=== PATIENT | female | born 1985 | race American Indian/Alaskan Native ===

== ENCOUNTER 2019-02-09 12:06 | Emergency (ER) | payer SELFPAY ==
[2019-02-09] MEDS ORDERED: MORPHINE IV ONE (12:56)
[2019-02-09] MEDS ORDERED: ZOFRAN IV ONE (12:56)
--- NOTE | 2019-02-09 12:56 | Emergency Department Report ---
HPI - General Chief Complaint: Abdominal Pain Time Seen by Provider: 02/09/19 12:30 - HPI HPI: 33-year-old female presents to the emergency department via EMS from home with complaint of generalized abdominal pain, nausea and vomiting. She has been dealing with the abdominal pain over the past 2-3 days but woke up with it this morning much more intense than usual. The nausea and vomiting started this morning. She denies any fever, back pain, dysuria, vaginal bleeding or discharge. She does not have any past medical history. She has not taken an ything for her symptoms prior to arrival today. ED Past Medical Hx - Past Medical History Additional medical history: ovarian cyst - Surgical History Past Surgical History?: No - Social History Smoking Status: Current Every Day Smoker Substance Use Type: None - Medications Home Medications: Home Medications Medication Instructions Recorded Confirmed Last Taken Type metroNIDAZOLE [Flagyl] 500 mg PO Q12HR #14 tab 07/19/18 Unknown Rx traMADol [Ultram 50 MG tab] 50 mg PO Q6HR PRN #10 tablet 02/09/19 Unknown Rx ED Review of Systems ROS: Stated complaint: ABD PAIN Other details as noted in HPI Comment: All other systems reviewed and negative Constitutional: denies: chills, fever Eyes: denies: eye pain, vision change ENT: denies: ear pain, throat pain Respiratory: denies: cough, shortness of breath Cardiovascular: denies: chest pain, palpitations Gastrointestinal: abdominal pain, nausea, vomiting Genitourinary: denies: dysuria, discharge Musculoskeletal: denies: back pain, arthralgia Skin: denies: rash, lesions Neurological: denies: headache, weakness Physical Exam - Physical Exam Vital Signs: Vital Signs 02/09/19 12:25 Temperature 97.9 F Pulse Rate 72 Respiratory 16 Rate Blood Pressure 96/56 [Left] O2 Sat by Pulse 100 Oximetry Physical Exam: GENERAL: The patient is well-developed well-nourished. HENT: Normocephalic. Atraumatic. Patient has moist mucous membranes. EYES: Extraocular motions are intact. NECK: Supple. Trachea is midline. CHEST/LUNGS: Clear to auscultation. There is no respiratory distress noted. HEART/CARDIOVASCULAR: Regular. There is no tachycardia. There is no murmur. ABDOMEN: Abdomen is soft. There is generalized abdominal tenderness with some guarding. Patient has normal bowel sounds. There is no abdominal distention. SKIN: Skin is warm and dry. NEURO: The patient is awake, alert, and oriented. The patient is cooperative. The patient has no focal neurologic deficits. The patient has normal speech. MUSCULOSKELETAL: There is no tenderness or deformity. There is no evidence of acute injury. ED Course Vital Signs 02/09/19 12:25 Temperature 97.9 F Pulse Rate 72 Respiratory 16 Rate Blood Pressure 96/56 [Left] O2 Sat by Pulse 100 Oximetry ED Medical Decision Making - Lab Data Result diagrams: 02/09/19 12:37 02/09/19 12:37 - Radiology Data Radiology results: report reviewed, image reviewed interpreted by me: Abdominal x-ray shows nonspecific nonobstructive bowel gas CT ABDOMEN AND PELVIS WITH CONTRAST INDICATION: Abd pain. TECHNIQUE: Axial CT images were obtained through the abdomen and pelvis after 100 cc Omnipaque IV contrast. All CT scans at this location are performed using CT dose reduction for ALARA by means of automated exposure control. COMPARISON: None available. FINDINGS: LOWER CHEST: No significant abnormality. LIVER: No significant abnormality. GALLBLADDER: No significant abnormality. BILE DUCTS: No significant abnormality. PANCREAS: No significant abnormality. SPLEEN: No significant abnormality. ADRENALS: No significant abnormality. RIGHT KIDNEY and URETER: No significant abnormality. LEFT KIDNEY and URETER: No significant abnormality. STOMACH and SMALL BOWEL: No significant abnormality. COLON: No significant abnormality. APPENDIX: Normal PERITONEUM: Trace amount of free pelvic fluid No free air. No fluid collection. LYMPH NODES: No significant adenopathy. AORTA and ARTERIES: No significant abnormality. IVC and VEINS: No significant abnormality. URINARY BLADDER: No significant abnormality. REPRODUCTIVE ORGANS: Collapsed 2.5 cm left ovarian corpus luteal cyst. ADDITIONAL FINDINGS: None. SKELETAL SYSTEM: No significant abnormality. IMPRESSION: 1. 2.5 cm left ovarian corpus luteal cyst with trace amount of free pelvic fluid. 2. No CT evidence for appendicitis or other acute inflammatory process. - Medical Decision Making Patient came in with severe generalized abdominal pain. However the abdomen is soft and nondistended. Patient's labs have been unremarkable including CBC, CMP, lipase, urinalysis and the patient is not . Abdominal x-ray shows nonspecific nonobstructive bowel gas. Her discomfort was greatly improved with 1 dose of pain medication and some IV fluid. A CT scan of the abdomen and pelvis with IV contrast was done that came back showing a 2.5 cm left ovarian corpus luteal cyst. Vital signs stable throughout her ED course. The patient appears safe for discharge home and has been given referrals for gastroenterology and [facility]. She will return to the ER with any worsening of her symptoms or any acute distress. - Differential Diagnosis Colitis, gastritis, , UTI, bowel obstruction Critical Care Time: No Critical care attestation.: If time is entered above; I have spent that time in minutes in the direct care of this critically ill patient, excluding procedure time. ED Disposition Clinical Impression: Corpus luteum cyst Abdominal pain Qualifiers: Abdominal location: generalized Qualified Code(s): R10.84 - Generalized abdominal pain Disposition: - TO HOME OR SELFCARE Is pt being admited?: No Condition: Stable Instructions: Ovarian Cyst (ED), Abdominal Pain (ED) Additional Instructions: Please follow up with a primary care physician in the next few days. I am giving him a referral for a local grouter helper, Dr. Mas, to follow up regarding your abdominal pains. I am also giving you a few different referrals of [facility] groups to follow up regarding the ovarian cyst. Return to the emergency Department with any worsening of your symptoms or any acute distress. You have been prescribed a medication that is sedating and therefore should not be taken prior to driving, working, and responsible for children and in no way should be mixed with alcohol of any quantity. Prescriptions: traMADol [Ultram 50 MG tab] 50 mg PO Q6HR PRN #10 tablet PRN Reason: Pain Referrals: PRAKASH MAS MD [Staff Physician] - 2-3 Days [facility] [Provider Group] - 2-3 Days [facility] [Provider Group] - 2-3 Days [facility] [Referring] - 2-3 Days Time of Disposition: 17:41
[2019-02-09 13:24] LABS: Hemoglobin 12.2 gm/dl (10.1-14.3); Mean Corpuscular HGB Conc 33 % (30-34); Mean Corpuscular Volume 84 fl (79-97); Platelet Count 152 K/mm3 (140-440); Red Blood Count 4.39 M/mm3 (3.65-5.03); Red Cell Distribution Width 15.8 % (13.2-15.2)
[2019-02-09 13:29] LABS: Alanine Aminotransferase 8 units/L (7-56); Albumin 3.5 g/dL (3.9-5); BUN/Creatinine Ratio 8; Blood Urea Nitrogen 7 mg/dL (7-17); Calcium 8.7 mg/dL (8.4-10.2); Hemolysis Index 9
[2019-02-09 13:38] LABS: Bilirubin,Direct < 0.2 mg/dL (0-0.2)
--- NOTE | 2019-02-09 14:05 | XRay Report ---
SUPINE AND UPRIGHT ABDOMEN 02/09/2019 1:40 PM HISTORY: Abdominal Pain. FINDINGS: There is a normal bowel gas pattern without evidence of obstruction. No free air is identi fied. No abnormal calcifications or organomegaly. No osseous abnormality. IMPRESSION: Negative abdomen. Signer Name: Jose Anderson MD Signed: 02/09/2019 2:01 PM Workstation Name: [id number]
[2019-02-09 14:56] LABS: Basophils % (Manual) 0 % (0.0-1.8); Platelet Estimate Consistent w Auto; RBC Morphology Normal; Total Cells Counted 100
[2019-02-09 15:19] LABS: Bilirubin,Urine NEG (Negative); Blood,Urine NEG (Negative); Color,Urine Yellow (Yellow); Mucus,Urine FEW /HPF; Protein,Urine <15 mg/dL mg/dL (Negative); Urobilinogen,Urine < 2.0 mg/dL (<2.0)
--- NOTE | 2019-02-09 17:21 | Cat Scan Report ---
CT ABDOMEN AND PELVIS WITH CONTRAST INDICATION: Abd pain. TECHNIQUE: Axial CT images were obtained through the abdomen and pelvis after 100 cc Omnipaque IV contrast. All CT scans at this location are performed using CT dose reduction for ALARA by means of automated expo sure control. COMPARISON: None available. FINDINGS: LOWER CHEST: No significant abnormality. LIVER: No significant abnormality. GALLBLADDER: No significant abnormality. BILE DUCTS: No significant abnormality. PANCREAS: No significant abnormality. SPLEEN: No significant abnormality. ADRENALS: No significant abnormality. RIGHT KIDNEY and URETER: No significant abnormality. LEFT KIDNEY and URETER: No significant abnormality. STOMACH and SMALL BOWEL: No significant abnormality. COLON: No significant abnormality. APPENDIX: Normal PERITONEUM: Trace amount of free pelvic fluid No free air. No fluid collection. LYMPH NODES: No significant adenopathy. AORTA and ARTERIES: No significant abnormality. IVC and VEINS: No significant abnormality. URINARY BLADDER: No significant abnormality. REPRODUCTIVE ORGANS: Collapsed 2.5 cm left ovarian corpus luteal cyst. ADDITIONAL FINDINGS: None. SKELETAL SYSTEM: No significant abnormality. IMPRESSION: 1. 2.5 cm left ovarian corpus luteal cyst with trace amount of free pelvic fluid. 2. No CT evidence for appendicitis or other acute inflammatory process. Signer Name: Evan Brenner MD Signed: 02/09/2019 5:17 PM Workstation Name: [id number]
[2019-02-09 18:17] VITALS: BP 118/74
== END 2019-02-09 18:22 | disposition home or self-care (01) ==
LOC: ED 12:06
DX: N83.10 Corpus luteum cyst of ovary, unspecified side (principal); F17.200 Nicotine dependence, unspecified, uncomplicated
CPT/HCPCS: 36415; 74019; 74177; 80048; 80076; 81001; 83690; 84703; 85007; 85025; J2270; J2405; Q9967; 96374; 96375

== ENCOUNTER 2020-01-19 05:44 | Emergency (ER) | payer SELFPAY ==
[2020-01-19] MEDS ORDERED: HYDROmorphone 1 MG/1 ML INJ IV ONE (05:48)
[2020-01-19] MEDS ORDERED: ONDANSETRON 4 MG/2 ML INJ IV ONE (05:48)
--- NOTE | 2020-01-19 06:29 | Emergency Department Report ---
ED Abdominal Pain HPI - General Chief Complaint: Abdominal Pain Stated Complaint: ABD PAIN Source: EMS Mode of arrival: Stretcher Limitations: No Limitations - History of Present Illness Initial Comments: This is a 34-year-old female who has had recurrent pelvic pain attributed to ovarian cyst now for years. She states that her symptoms of suprapubic discomfort have been present dull and intermittent for the past 3 days. 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 She denies fever or chills. She states she has some nausea. She presented via EMS quite similar to her prior visit. She had previously had a CT which showed no acute pathology and a 2.5 cm left corpus luteal cyst. She states she is currently menstruating. 2019 emergency department visit: - Medical Decision Making Patient came in with severe generalized abdominal pain. However the abdomen is soft and nondistended. Patient's labs have been unremarkable including CBC, CMP, lipase, urinalysis and the patient is not . Abdominal x-ray shows nonspecific nonobstructive bowel gas. Her discomfort was greatly improved with 1 dose of pain medication and some IV fluid. A CT scan of the abdomen and pelvis with IV contrast was done that came back showing a 2.5 cm left ovarian corpus luteal cyst. Vital signs stable throughout her ED course. The patient appears safe for discharge home and has been given referrals for gastroenterology and [facility]. She will return to the ER with any worsening of her symptoms or any acute distress. MD Complaint: abdominal pain -: days(s) Location: suprapubic Radiation: none Migration to: no migration Severity scale (0 -10): 3 Quality: aching Consistency: intermittent Improves With: nothing Worsens With: nothing Context: other (See above HPI) Associated Symptoms: denies other symptoms, nausea - Related Data Previous Rx's Medication Instructions Recorded Last Taken Type traMADoL [Ultram 50 MG tab] 50 mg PO Q6HR PRN #10 tablet 02/09/19 Unknown Rx Ciprofloxacin HCl [Ciprofloxacin 500 mg PO Q12HR #14 tab 01/19/20 Unknown Rx TAB] metroNIDAZOLE [Flagyl TAB] 500 mg PO Q12HR #14 tab 01/19/20 Unknown Rx Allergies Allergy/AdvReac Type Severity Reaction Status Date / Time No Known Allergies Allergy Unverified 02/09/19 12:28 ED Review of Systems ROS: Stated complaint: ABD PAIN Other details as noted in HPI Constitutional: denies: chills, fever Eyes: denies: eye pain, eye discharge, vision change ENT: denies: ear pain, throat pain Respiratory: denies: cough, shortness of breath, wheezing Cardiovascular: denies: chest pain, palpitations Endocrine: no symptoms reported Gastrointestinal: denies: abdominal pain, nausea, diarrhea Genitourinary: as per HPI. denies: urgency, dysuria, discharge Musculoskeletal: denies: back pain, joint swelling, arthralgia Skin: denies: rash, lesions Neurological: denies: headache, weakness, paresthesias Psychiatric: denies: anxiety, depression Hematological/Lymphatic: denies: easy bleeding, easy bruising ED Past Medical Hx - Past Medical History Previous Medical History?: Yes Additional medical history: ovarian cyst - Surgical History Past Surgical History?: No - Social History Smoking Status: Current Every Day Smoker Substance Use Type: Alcohol, Marijuana - Medications Home Medications: Home Medications Medication Instructions Recorded Confirmed Last Taken Type traMADoL [Ultram 50 MG tab] 50 mg PO Q6HR PRN #10 tablet 02/09/19 Unknown Rx Ciprofloxacin HCl [Ciprofloxacin 500 mg PO Q12HR #14 tab 01/19/20 Unknown Rx TAB] metroNIDAZOLE [Flagyl TAB] 500 mg PO Q12HR #14 tab 01/19/20 Unknown Rx ED Physical Exam - General Limitations: No Limitations General appearance: alert, in no apparent distress - Head Head exam: Present: atraumatic, normocephalic - Eye Eye exam: Present: normal appearance. Absent: scleral icterus - ENT ENT exam: Present: mucous membranes moist - Neck Neck exam: Present: normal inspection - Respiratory Respiratory exam: Present: normal lung sounds bilaterally. Absent: respiratory distress - Cardiovascular Cardiovascular Exam: Present: regular rate, normal rhythm. Absent: systolic murmur, diastolic murmur, rubs, gallop - GI/Abdominal GI/Abdominal exam: Present: soft, normal bowel sounds. Absent: distended, tenderness, guarding, rebound, rigid, organomegaly, mass, bruit, pulsatile mass, hernia - Extremities Exam Extremities exam: Present: normal inspection. Absent: pedal edema, calf tenderness - Back Exam Back exam: Present: normal inspection - Neurological Exam Neurological exam: Present: alert, oriented X3, CN II-XII intact. Absent: motor sensory deficit - Psychiatric Psychiatric exam: Present: normal affect, normal mood - Skin Skin exam: Present: warm, dry, intact, normal color. Absent: rash ED Course Vital Signs 01/19/20 01/19/20 05:46 08:28 Temperature 99 F Pulse Rate 86 80 Respiratory 16 16 Rate Blood Pressure 127/85 122/76 [Left] O2 Sat by Pulse 99 96 Oximetry - Reevaluation(s) Reevaluation #1: Patient is clinically stable. Will continue her treatment for PID. She will be referred to gynecology. I do not find any indication for admission at this time. 01/19/20 10:32 ED Medical Decision Making - Lab Data Result diagrams: 01/19/20 06:07 01/19/20 06:07 Laboratory Results - last 24 hr 01/19/20 01/19/20 01/19/20 06:07 06:07 06:07 WBC 15.1 H RBC 4.44 Hgb 12.1 Hct 36.5 MCV 82 MCH 27 L MCHC 33 RDW 13.4 Plt Count 282 Seg Neutrophils % Paint Line Production Supervisor Sodium 135 L Potassium 3.8 Chloride 98.4 Carbon Dioxide 20 L Anion Gap 20 BUN 11 Creatinine 0.8 Estimated GFR > 60 BUN/Creatinine Ratio 14 Glucose 125 H Calcium 9.4 Total Bilirubin 0.50 AST 18 ALT 10 Alkaline Phosphatase 69 Total Protein 8.6 H Albumin 3.4 L Albumin/Globulin Ratio 0.7 HCG, Qual Negative Urine Color Urine Turbidity Urine pH Ur Specific [place] Urine Protein Urine Glucose (UA) Urine Ketones Urine Blood Urine Nitrite Urine Bilirubin Urine Urobilinogen Ur Leukocyte Esterase Urine WBC (Auto) Urine RBC (Auto) U Epithel Cells (Auto) Urine Bacteria (Auto) Urine Mucus 01/19/20 06:25 WBC RBC Hgb Hct MCV MCH MCHC RDW Plt Count Seg Neutrophils % Sodium Potassium Chloride Carbon Dioxide Anion Gap BUN Creatinine Estimated GFR BUN/Creatinine Ratio Glucose Calcium Total Bilirubin AST ALT Alkaline Phosphatase Total Protein Albumin Albumin/Globulin Ratio HCG, Qual Urine Color Yellow Urine Turbidity Slightly-cloudy Urine pH 8.0 H Ur Specific [place] 1.021 Urine Protein 100 mg/dl Urine Glucose (UA) Neg Urine Ketones 80 Urine Blood Lg Urine Nitrite Neg Urine Bilirubin Neg Urine Urobilinogen 4.0 Ur Leukocyte Esterase Neg Urine WBC (Auto) 5.0 Urine RBC (Auto) 8.0 U Epithel Cells (Auto) 6.0 Urine Bacteria (Auto) 1+ Urine Mucus Few - Radiology Data IMPRESSION: Complex partially cystic left adnexal lesion as described above. The left ovary is not clearly identified on ultrasound. This probably represents a dilated fallopian tubule filled with debris. Correlate for PID. Complex hemorrhagic cysts could be considered but is thought less likely. Correlate with the patient's clinical presentation. CT abdomen pelvis with contrast may provide additional information. Uterine fibroid. Critical care attestation.: If time is entered above; I have spent that time in minutes in the direct care of this critically ill patient, excluding procedure time. ED Disposition Clinical Impression: PID (acute pelvic inflammatory disease) Disposition: TO HOME OR SELFCARE Is pt being admited?: No Does the pt Need Aspirin: No Condition: Stable Instructions: Abdominal Pain (ED), Pelvic Inflammatory Disease (ED) Additional Instructions: Return fever chills or significant pain. Follow-up with [facility]. Return any acute change or problem. Rx as directed. Prescriptions: Ciprofloxacin HCl [Ciprofloxacin TAB] 500 mg PO Q12HR #14 tab metroNIDAZOLE [Flagyl TAB] 500 mg PO Q12HR #14 tab Referrals: [facility] [Primary Care Provider] - 3-5 Days [facility] [Provider Group] - 2-3 Days Time of Disposition: 10:32
[2020-01-19 06:47] LABS: Hematocrit 36.5 % (30.3-42.9); Hemoglobin 12.1 gm/dl (10.1-14.3); Mean Corpuscular HGB Conc 33 % (30-34); Mean Corpuscular Volume 82 fl (79-97); Platelet Count 282 K/mm3 (140-440); Red Blood Count 4.44 M/mm3 (3.65-5.03); Red Cell Distribution Width 13.4 % (13.2-15.2)
[2020-01-19 06:50] LABS: Alanine Aminotransferase 10 units/L (7-56); Albumin 3.4 g/dL (3.9-5); BUN/Creatinine Ratio 14; Blood Urea Nitrogen 11 mg/dL (7-17); Calcium 9.4 mg/dL (8.4-10.2); Hemolysis Index 10
[2020-01-19 06:52] LABS: Bacteria,Urine 1+ /HPF (Negative); Bilirubin,Urine NEG (Negative); Blood,Urine LG (Negative); Color,Urine Yellow (Yellow); Mucus,Urine FEW /HPF
--- NOTE | 2020-01-19 07:44 | Ultrasound Report ---
ULTRASOUND PELVIC COMPLETE ULTRASOUND TRANSVAGINAL HISTORY: Pelvic pain, ovarian cyst TECHNIQUE: Transabdominal and transvaginal imaging with color Doppler interrogation. COMPARISON: CT abdomen pelvis with contrast 02/09/2019 FINDINGS: The uterus is anteverted and measures 7 x 3 x 3 cm. A 2.1 x 2.4 cm subserosal fibroid is identified i n the right lateral uterine wall. The cervix is unremarkable. The endometrium is homogeneous and measures 4 mm. The right ovary measures 3.9 x 2.1 x 2.7 cm. Small amount of fluid is identified in the right adnexal region. There is a complex heterogeneous partially cystic masslike lesion in the left adnexa measuring up to 8.5 x 5.9 x 6.7 cm. I do not clearly see the left ovary. There are multiple cystic and tubular appear ing structures containing debris within this lesion measuring between 3-4 cm. This may represent a di lated left location tubule. Small to medium free fluid is identified in the cul-de-sac. IMPRESSION: Complex partially cystic left adnexal lesion as described above. The left ovary is not clearly identi fied on ultrasound. This probably represents a dilated fallopian tubule filled with debris. Correlate for PID. Complex hemorrhagic cysts could be considered but is thought less likely. Correlate with th e patient's clinical presentation. CT abdomen pelvis with contrast may provide additional information . Uterine fibroid. Signer Name: Jim Vance Jr, MD Signed: 01/19/2020 7:39 AM Workstation Name: [id number]
[2020-01-19] MEDS ORDERED: cefTRIAXone/NS 1 GM/50 ML 1 GM/50 ML BAG IV ONE (08:38)
[2020-01-19 08:51] LABS: Band Neutrophils # (Manual) 0.2 K/mm3; Basophils % (Manual) 0 % (0.0-1.8); Eosinophils % (Manual) 0 % (0.0-4.3); Platelet Estimate Consistent w Auto; RBC Morphology Normal; Total Cells Counted 100
[2020-01-19] MEDS ORDERED: AZITHROMYCIN 500 MG in SODIUM CHLORIDE 0.9% 250ML 250 ML IV ONE (09:15)
[2020-01-19 10:37] VITALS: BP 124/90
== END 2020-01-19 11:59 | disposition home or self-care (01) ==
LOC: ED 05:44
DX: N73.0 Acute parametritis and pelvic cellulitis (principal); F17.200 Nicotine dependence, unspecified, uncomplicated; F12.90 Cannabis use, unspecified, uncomplicated; Z79.899 Other long term (current) drug therapy
CPT/HCPCS: 36415; 76830; 76856; 80053; 81001; 84703; 85007; 85025; 87086; 96365; 96366; 96375; 99284; J0456; J0696; J1170; J2405; J7050

== ENCOUNTER 2020-07-20 00:38 | Emergency (ER) | payer SELFPAY ==
[2020-07-20 03:24] LABS: Bilirubin,Urine NEG (Negative); Blood,Urine NEG (Negative); Color,Urine Yellow (Yellow); Protein,Urine <15 mg/dL mg/dL (Negative); Urobilinogen,Urine < 2.0 mg/dL (<2.0)
[2020-07-20 03:53] LABS: HCG Qualitative,Urine Negative (Negative)
[2020-07-20 04:53] LABS: Hemoglobin 9.1 gm/dl (10.1-14.3); Mean Corpuscular HGB Conc 34 % (30-34); Mean Corpuscular Volume 82 fl (79-97); Platelet Count 296 K/mm3 (140-440); Red Blood Count 3.27 M/mm3 (3.65-5.03); Red Cell Distribution Width 14.7 % (13.2-15.2)
--- NOTE | 2020-07-20 04:53 | Event Note ---
ED Screening Note Date of service: 07/20/20 Time: 04:52 ED Screening Note: Patient presents with complaints of lower abdominal pain x last night. Had lap/surgery done 07/09/20 for ovarian cyst. Was seen by surgeon postop 07/19/20. States she is having normal bowel movements and passing gas Denies any urinary symptoms Rates pain is 8/10 in severity Denies fever This initial assessment/diagnostic orders/clinical plan/treatment(s) is/are subject to change based on patients health status, clinical progression and re- assessment by fellow clinical providers in the ED. Further treatment and workup at subsequent clinical providers discretion. Patient/guardian urged not to elope from the ED as their condition may be serious if not clinically assessed and managed. Initial orders include: Labs CT abdomen
[2020-07-20] MEDS ORDERED: ONDANSETRON 4 MG/2 ML INJ IV ONE (04:54)
[2020-07-20] MEDS ORDERED: SODIUM CHLORIDE 0.9% 1000 ML 1,000 ML IV ONE (04:54)
[2020-07-20] MEDS ORDERED: MORPHINE 4 MG/1 ML INJ IV ONE (04:54)
[2020-07-20 05:12] LABS: Alanine Aminotransferase 10 units/L (7-56); Albumin 3.9 g/dL (3.9-5); BUN/Creatinine Ratio 15; Blood Urea Nitrogen 12 mg/dL (7-17); Calcium 9.1 mg/dL (8.4-10.2); Hemolysis Index 4
[2020-07-20 06:14] LABS: Total Cells Counted 100
[2020-07-20 06:16] LABS: Schistocytes Few; Target Cells Few
--- NOTE | 2020-07-20 06:29 | Cat Scan Report ---
CT ABDOMEN AND PELVIS WITH IV CONTRAST INDICATION: Lower abdominal pain TECHNIQUE: Following the administration of intravenous contrast, multiple axial CT images of the abdo men and pelvis were acquired. Sagittal and coronal reformats were obtained. All CT performed at this facility utilize dose reduction techniques including automated exposure control, iterative reconstru ction and weight based dosing when appropriate to reduce patient radiation dose to as low as reasonab ly achievable. COMPARISON: CT of the abdomen and pelvis, 02/09/2019 FINDINGS: Limited imaging of the bilateral lung bases demonstrates no acute abnormality. ABDOMEN: The liver, gallbladder, spleen, pancreas, bilateral adrenal glands and bilateral kidneys show no evid ence of acute abnormality. The abdominal aorta is normal in caliber. There is no evidence of bowel ob struction. The appendix is visualized and appears normal. PELVIS: There is a small amount of free pelvic fluid. There is a small amount of endometrial fluid. There is a 2 cm right adnexal cyst. The urinary bladder appears normal. BONES AND SOFT TISSUES: Evaluation of bony structures demonstrates no evidence of acute bony abnormal ity. Soft tissue structures show no evidence of acute abnormality. IMPRESSION: 1. No evidence of acute inflammatory or obstructive process within the abdomen or pelvis. 2. Small amount of free pelvic fluid etiology indeterminate. 3. Right adnexal cyst. Signer Name: Laurie Verdin MD Signed: 07/20/2020 6:24 AM Workstation Name: [id number]
--- NOTE | 2020-07-20 07:18 | Emergency Department Report ---
ED Abdominal Pain HPI - General Chief Complaint: Abdominal Pain Stated Complaint: ABD SCAR PAIN/POST PROCEDURE Time Seen by Provider: 07/20/20 03:40 Source: patient Mode of arrival: Ambulatory Limitations: No Limitations - History of Present Illness Initial Comments: 34-year-old -[place]ian female coming in reporting lower abdominal pain today. Patient states that she had lap surgery done on 07/09/2020 for an ovarian cyst while being in correction. Patient was seen by her surgeon postop on 07/19/2020. Patient states that while she was in correction she went to court and they released her's which she was not prepared and had to gather her things and leave abruptly from the correction center. Patient states that she has been carrying heavy bags and doing a lot of heavy lifting which was told to her not to for 3 weeks. Patient denies any vaginal bleeding no vaginal discharge no urinary symptoms. She denies any nausea vomiting. Denies any fever or chills. Denies any complications at her surgical site. Her doctor was Dr. Anjel marshall done at [facility]. Patient reports that she has pain medication from the surgery. MD Complaint: abdominal pain Onset/Timin -: days(s) Location: suprapubic Radiation: none Migration to: no migration Severity scale (0 -10): 2 Quality: aching Consistency: intermittent Improves With: medication, rest Worsens With: movement, other (Lifting heavy objects) Associated Symptoms: denies other symptoms - Related Data LMP Date: 06/20/20 Previous Rx's Medication Instructions Recorded Last Taken Type traMADoL [Ultram 50 MG tab] 50 mg PO Q6HR PRN #10 tablet 02/09/19 Unknown Rx Ciprofloxacin HCl [Ciprofloxacin 500 mg PO Q12HR #14 tab 01/19/20 Unknown Rx TAB] metroNIDAZOLE [Flagyl TAB] 500 mg PO Q12HR #14 tab 01/19/20 Unknown Rx Allergies Allergy/AdvReac Type Severity Reaction Status Date / Time No Known Allergies Allergy Unverified 02/09/19 12:28 ED Review of Systems ROS: Stated complaint: ABD SCAR PAIN/POST PROCEDURE Other details as noted in HPI Comment: All other systems reviewed and negative ED Past Medical Hx - Past Medical History Previous Medical History?: Yes Additional medical history: ovarian cyst - Surgical History Past Surgical History?: Yes Additional Surgical History: Laparospic Ovarian Cyst - Social History Smoking Status: Never Smoker Substance Use Type: None - Medications Home Medications: Home Medications Medication Instructions Recorded Confirmed Last Taken Type traMADoL [Ultram 50 MG tab] 50 mg PO Q6HR PRN #10 tablet 02/09/19 Unknown Rx Ciprofloxacin HCl [Ciprofloxacin 500 mg PO Q12HR #14 tab 01/19/20 Unknown Rx TAB] metroNIDAZOLE [Flagyl TAB] 500 mg PO Q12HR #14 tab 01/19/20 Unknown Rx ED Physical Exam - General Limitations: No Limitations ED Course Vital Signs 07/20/20 02:34 Temperature 97.9 F Pulse Rate 78 Respiratory 18 Rate Blood Pressure 108/80 O2 Sat by Pulse 100 Oximetry ED Medical Decision Making - Lab Data Result diagrams: 07/20/20 03:44 07/20/20 03:44 Laboratory Tests 07/20/20 07/20/20 07/20/20 03:44 03:44 Unknown WBC 5.0 RBC 3.27 L Hgb 9.1 L Hct 27.0 L MCV 82 MCH 28 MCHC 34 RDW 14.7 Plt Count 296 Add Manual Diff Complete Total Counted 100 Seg Neuts % (Manual) 64.0 Lymphocytes % (Manual) 25.0 Monocytes % (Manual) 8.0 H Eosinophils % (Manual) 3.0 Nucleated RBC % Not Reportable Seg Neutrophils # Man 3.2 Band Neutrophils # 0.0 Lymphocytes # (Manual) 1.3 Abs React Lymphs (Man) 0.0 Monocytes # (Manual) 0.4 Eosinophils # (Manual) 0.2 Basophils # (Manual) 0.0 Metamyelocytes # 0.0 Myelocytes # 0.0 Promyelocytes # 0.0 Blast Cells # 0.0 WBC Morphology Not Reportable Hypersegmented Neuts Not Reportable Hyposegmented Neuts Not Reportable Hypogranular Neuts Not Reportable Smudge Cells Not Reportable Toxic Granulation Not Reportable Toxic Vacuolation Not Reportable Dohle Bodies Not Reportable Pelger-Huet Anomaly Not Reportable Paramjit Rods Not Reportable Platelet Estimate Not Reportable Clumped Platelets Not Reportable Plt Clumps, EDTA Not Reportable Large Platelets Not Reportable Giant Platelets Not Reportable Platelet Satelliting Not Reportable Plt Morphology Comment Not Reportable RBC Morphology Not Reportable Dimorphic RBCs Not Reportable Polychromasia Not Reportable Hypochromasia Not Reportable Poikilocytosis Not Reportable Anisocytosis Not Reportable Microcytosis Not Reportable Macrocytosis Not Reportable Spherocytes Not Reportable Pappenheimer Bodies Not Reportable Sickle Cells Not Reportable Target Cells Few Tear Drop Cells Not Reportable Ovalocytes Not Reportable Helmet Cells Not Reportable [place] Bodies Not Reportable [place] Rings Not Reportable Maury Cells Not Reportable Bite Cells Not Reportable Crenated Cell Not Reportable Elliptocytes Not Reportable Acanthocytes (Spur) Not Reportable Rouleaux Not Reportable Hemoglobin C Crystals Not Reportable Schistocytes Few Malaria parasites Not Reportable Isacc Bodies Not Reportable Hem Pathologist Commnt C Sodium 138 Potassium 3.8 Chloride 105.7 Carbon Dioxide 23 Anion Gap 13 BUN 12 Creatinine 0.8 Estimated GFR > 60 BUN/Creatinine Ratio 15 Glucose 102 H Calcium 9.1 Total Bilirubin < 0.20 AST 16 ALT 10 Alkaline Phosphatase 44 Total Protein 6.5 Albumin 3.9 Albumin/Globulin Ratio 1.5 Lipase 46 Urine Color Yellow Urine Turbidity Slightly-cloudy Urine pH 5.0 Ur Specific Levels 1.019 Urine Protein <15 mg/dl Urine Glucose (UA) Neg Urine Ketones Neg Urine Blood Neg Urine Nitrite Neg Urine Bilirubin Neg Urine Urobilinogen < 2.0 Ur Leukocyte Esterase Tr Urine WBC (Auto) 2.0 Urine RBC (Auto) 1.0 U Epithel Cells (Auto) 12.0 Urine HCG, Qual Negative - Radiology Data Radiology results: report reviewed Patient Name: MARIAN POPE Gender: Female Date of : 1985 Referring Provider: LEO MILLARD Organization: [facility] Accession Number: [id number] Requested Date: July 20, 2020 06:08 Report Status: Final Requested Procedure: 1 Procedure Description: CT abdomen pelvis w con Modality: CT Findings Reporting MD: Laurie Verdin Dictation Time: July 20, 2020 05:24 Web Operations Lead: Not available Dry Talc Racker Date: CT ABDOMEN AND PELVIS WITH IV CONTRAST INDICATION: Lower abdominal pain TECHNIQUE: Following the administration of intravenous contrast, multiple axial CT images of the abdomen and pelvis were acquired. Sagittal and coronal reformats were obtained. All CT performed at this facility utilize dose reduction techniques including automated exposure control, iterative reconstruction and weight based dosing when appropriate to reduce patient radiation dose to as low as reasonably achievable. COMPARISON: CT of the abdomen and pelvis, 02/09/2019 FINDINGS: Limited imaging of the bilateral lung bases demonstrates no acute abnormality. ABDOMEN: The liver, gallbladder, spleen, pancreas, bilateral adrenal glands and bilateral kidneys show no evidence of acute abnormality. The abdominal aorta is normal in caliber. There is no evidence of bowel obstruction. The appendix is visualized and appears normal. PELVIS: There is a small amount of free pelvic fluid. There is a small amount of endometrial fluid. There is a 2 cm right adnexal cyst. The urinary bladder appears normal. BONES AND SOFT TISSUES: Evaluation of bony structures demonstrates no evidence of acute bony abnormality. Soft tissue structures show no evidence of acute abnormality. IMPRESSION: 1. No evidence of acute inflammatory or obstructive process within the abdomen or pelvis. 2. Small amount of free pelvic fluid etiology indeterminate. 3. Right adnexal cyst. Signer Name: Laurie Verdin MD Signed: 07/20/2020 5:24 AM Workstation Name: [id number] - Medical Decision Making 34-year-old -[place]ian female coming in reporting lower abdominal pain today. Patient states that she had lap surgery done on 07/09/2020 for an ovarian cyst while being in correction. Patient was seen by her surgeon postop on 07/19/2020. Patient states that while she was in correction she went to court and they released her's which she was not prepared and had to gather her things and leave abruptly from the correction center. Patient states that she has been carrying heavy bags and doing a lot of heavy lifting which was told to her not to for 3 weeks. Patient denies any vaginal bleeding no vaginal discharge no urinary symptoms. She denies any nausea vomiting. Denies any fever or chills. Denies any complications at her surgical site. Her doctor was Dr. Anjel Fuentes surgery done at [facility]. Patient reports that she has pain medication from the surgery. CT scan shows mild pelvic fluid no other acute abnormalities. Patient is sitting comfortably in the bed. She has had fluids and labs are all stable her H&H is a little low compared to her others. Not a candidate for blood transfusion. Patient will be discharged to continue with her ibuprofen. And to follow-up with her surgeon if she has any other concerns. Critical care attestation.: If time is entered above; I have spent that time in minutes in the direct care of this critically ill patient, excluding procedure time. ED Disposition Clinical Impression: Lower abdominal pain Disposition: DC-01 TO HOME OR SELFCARE Is pt being admited?: No Does the pt Need Aspirin: No Condition: Stable Instructions: Abdominal Pain (ED), Abdominal Pain, Adult, [id number] Additional Instructions: CT scans with no acute abnormalities. Recommend you continue with the ibuprofen for pain management and follow-up with Dr. Anjel Fuentes your general surgeon. [facility] Z[facility] [Primary Care Provider] - 3-5 Days Gina Paz [Other] - 3-5 Days
[2020-07-20 07:36] VITALS: BP 92/50
== END 2020-07-20 07:35 | disposition home or self-care (01) ==
LOC: ED 00:38
DX: R10.30 Lower abdominal pain, unspecified (principal); Z98.890 Other specified postprocedural states; Z79.899 Other long term (current) drug therapy
CPT/HCPCS: 36415; 74177; 80053; 81001; 81025; 83690; 85007; 85025; 96361; 96374; 96375; 99284; J2270; J2405; J7030; Q9967

== ENCOUNTER 2020-11-08 15:50 | Emergency (ER) | payer SELFPAY ==
[2020-11-08] MEDS ORDERED: ACETAMINOPHEN 500 MG TAB PO ONE (17:03)
--- NOTE | 2020-11-08 17:06 | Event Note ---
ED Screening Note Date of service: 11/08/20 Time: 17:04 ED Screening Note: 34-year-old female patient presents to the emergency department with complaints of sore throat, abdominal pain, nausea, vomiting, and diarrhea starting 3 days ago. Patient has not been tested for COVID-19 since onset of symptoms. Fever and tachycardia noted in triage. Given Tylenol and obtained cultures/lactic acid level per sepsis protocol. General: Awake, appropriately interactive, no acute distress. ENT: Pharyngeal erythema without exudate. Uvula is midline and nonedematous. Neck: Supple. Full range of motion intact. Cardiovascular: Tachycardic. Normal peripheral perfusion. Pulmonary: Clear to auscultation. No respiratory distress. Patient is speaking normally without use of accessory muscles. Skin: No apparent rashes or lesions. Neurological: No facial asymmetry. Speech is clear. Follows commands. Patient is alert and oriented. Musculoskeletal: Moves all four extremities spontaneously with normal range of motion. Psych: Cooperative. Appropriate mood and affect. I have greeted and performed a focused rapid initial assessment of this patient. A comprehensive ED assessment and evaluation of the patient, analysis of all test results, and completion of the medical decision-making process will be conducted by additional ED providers. This initial assessment/diagnostic orders/clinical plan/treatment(s) is/are subject to change based on patients health status, clinical progression and re-assessment. Further treatment and workup at subsequent clinical provider's discretion. Patient/guardian urged not to elope from the ED as their condition may be serious if not clinically assessed and managed.
[2020-11-08 17:27] LABS: Basophils % (Auto) 0.3 % (0.0-1.8); Hematocrit 37.5 % (30.3-42.9); Hemoglobin 12.6 gm/dl (10.1-14.3); Lymphocytes # (Auto) 1.1 K/mm3 (1.2-5.4); Lymphocytes % (Auto) 13.8 % (13.4-35.0); Mean Corpuscular HGB Conc 34 % (30-34); Mean Corpuscular Volume 72 fl (79-97); Monocytes # (Auto) 0.6 K/mm3 (0.0-0.8); Monocytes % (Auto) 8.1 % (0.0-7.3); Platelet Count 229 K/mm3 (140-440); Red Blood Count 5.18 M/mm3 (3.65-5.03); Red Cell Distribution Width 18.7 % (13.2-15.2)
[2020-11-08 17:40] LABS: Bilirubin,Urine NEG (Negative); Blood,Urine SM (Negative); Color,Urine Yellow (Yellow); Mucus,Urine FEW /HPF; Protein,Urine <15 mg/dL mg/dL (Negative); Urobilinogen,Urine < 2.0 mg/dL (<2.0)
[2020-11-08 17:48] LABS: Alanine Aminotransferase 7 units/L (7-56); Albumin 4.1 g/dL (3.9-5); BUN/Creatinine Ratio 6; Blood Urea Nitrogen 7 mg/dL (7-17); Calcium 8.8 mg/dL (8.4-10.2); Hemolysis Index 5
--- NOTE | 2020-11-08 18:20 | XRay Report ---
CHEST 2 VIEWS INDICATION / CLINICAL INFORMATION: fever/tachycardia. COMPARISON: None available. FINDINGS: SUPPORT DEVICES: None. HEART / MEDIASTINUM: No significant abnormality. LUNGS / PLEURA: No significant pulmonary or pleural abnormality. No pneumothorax. ADDITIONAL FINDINGS: No significant additional findings. IMPRESSION: 1. No acute findings. Signer Name: Eric Collado MD Signed: 11/08/2020 6:15 PM Workstation Name: [id number]
[2020-11-08] MEDS ORDERED: SODIUM CHLORIDE 0.9% 1000 ML 1,000 ML IV ONE ×2 (21:27)
[2020-11-08] MEDS ORDERED: fentaNYL 100 MCG/2 ML INJ IV ONE (21:40)
[2020-11-08] MEDS ORDERED: cefTRIAXone/NS 1 GM/50 ML 1 GM/50 ML BAG IV ONE (21:40)
[2020-11-08] MEDS ORDERED: ONDANSETRON 4 MG/2 ML INJ IV ONE (21:40)
[2020-11-08] MEDS ORDERED: LIDOCAINE VISCOUS 2% 15 ML ORAL LIQD PO ONE (21:41)
--- NOTE | 2020-11-08 21:45 | Emergency Department Report ---
HPI - General Chief Complaint: Sore Throat Time Seen by Provider: 11/08/20 19:31 - HPI HPI: Room 20 The patient is a 34-year-old female present with a chief complaint of sore throat. Patient states for the past 3 days she has had a sore throat mostly on the right side and subjective fever. Patient states she is also had a cough productive of clear sputum and nausea vomiting and diarrhea for the past 3 days. Patient denies any known sick contacts. Patient denies dysuria. Patient currently gives her pain a score 7/10 ED Past Medical Hx - Past Medical History Previous Medical History?: No Additional medical history: ovarian cyst - Surgical History Past Surgical History?: Yes Additional Surgical History: Laparospic Ovarian Cyst - Family History Family history: no significant - Social History Smoking Status: Current Every Day Smoker (5 cigarettes daily) Substance Use Type: None (Denies illicit drug use) - Medications Home Medications: Home Medications Medication Instructions Recorded Confirmed Last Taken Type traMADoL [Ultram 50 MG tab] 50 mg PO Q6HR PRN #10 tablet 02/09/19 Unknown Rx Ciprofloxacin HCl [Ciprofloxacin 500 mg PO Q12HR #14 tab 01/19/20 Unknown Rx TAB] metroNIDAZOLE [Flagyl TAB] 500 mg PO Q12HR #14 tab 01/19/20 Unknown Rx Amoxicillin/Potassium Clav 1 each PO BID #20 tablet 11/09/20 Unknown Rx [Augmentin 875-125 Tablet] HYDROcodone/APAP 5-325 [[place] 1 - 2 each PO Q6HR PRN #10 tablet 11/09/20 Unknown Rx 5/325] Ondansetron [Zofran ODT TAB] 8 mg PO Q8HR #20 tab.rapdis 11/09/20 Unknown Rx ED Review of Systems ROS: Stated complaint: THROAT SORE/BODY ACHES Other details as noted in HPI Constitutional: fever (Subjective) Eyes: denies: eye pain ENT: throat pain Respiratory: cough Cardiovascular: denies: chest pain Endocrine: no symptoms reported Gastrointestinal: nausea, vomiting, diarrhea. denies: abdominal pain Genitourinary: denies: dysuria Musculoskeletal: denies: back pain Neurological: denies: headache Physical Exam - Physical Exam Vital Signs: Vital Signs 11/08/20 17:04 Temperature 103 F H Pulse Rate 130 H Respiratory 24 Rate Blood Pressure 106/76 [Right] O2 Sat by Pulse 100 Oximetry Physical Exam: GENERAL: The patient is well-developed well-nourished female lying on stretcher not appearing to be in acute distress. [] HEENT: Normocephalic. Atraumatic. Extraocular motions are intact. Patient has moist mucous membranes. Pale erythema bilaterally. Uvula midline NECK: Supple. Trachea midline CHEST/LUNGS: Clear to auscultation. There is no respiratory distress noted. HEART/CARDIOVASCULAR: Regular. There is tachycardia. There is no gallop rub or murmur. ABDOMEN: Abdomen is soft, nontender. Patient has normal bowel sounds. There is no abdominal distention. SKIN: There is no rash. There is no edema. There is no diaphoresis. NEURO: The patient is awake, alert, and oriented. The patient is cooperative. The patient has no focal neurologic deficits. The patient has normal speech MUSCULOSKELETAL: There is no evidence of acute injury. ED Course Vital Signs 11/08/20 17:04 Temperature 103 F H Pulse Rate 130 H Respiratory 24 Rate Blood Pressure 106/76 [Right] O2 Sat by Pulse 100 Oximetry - Reevaluation(s) Reevaluation #1: 11/09/20 00:42 2-minute walking SPO2 remained greater than 95% ED Medical Decision Making - Lab Data Result diagrams: 11/08/20 17:07 11/08/20 17:07 Laboratory Tests 11/08/20 11/08/20 11/08/20 17:07 17:07 17:07 WBC 7.7 RBC 5.18 H Hgb 12.6 Hct 37.5 MCV 72 L MCH 24 L MCHC 34 RDW 18.7 H Plt Count 229 Lymph % (Auto) 13.8 [place] % (Auto) 8.1 H Eos % (Auto) 0.0 Baso % (Auto) 0.3 Lymph # (Auto) 1.[address] [place] # (Auto) 0.6 Eos # (Auto) 0.0 Baso # (Auto) 0.0 Seg Neutrophils % 77.8 H Seg Neutrophils # 6.0 Sodium 132 L Potassium 3.8 Chloride 99.5 Carbon Dioxide 21 L Anion Gap 15 BUN 7 Creatinine 1.1 Estimated GFR > 60 BUN/Creatinine Ratio 6 Glucose 99 Lactic Acid 1.10 Calcium 8.8 Magnesium 2.00 Total Bilirubin 0.20 AST 14 ALT 7 Alkaline Phosphatase 53 Total Protein 7.9 Albumin 4.1 Albumin/Globulin Ratio 1.1 HCG, Qual Urine Color Urine Turbidity Urine pH Ur Specific [place] Urine Protein Urine Glucose (UA) Urine Ketones Urine Blood Urine Nitrite Urine Bilirubin Urine Urobilinogen Ur Leukocyte Esterase Urine WBC (Auto) Urine RBC (Auto) U Epithel Cells (Auto) Urine Mucus 11/08/20 11/08/20 17:07 17:14 WBC RBC Hgb Hct MCV MCH MCHC RDW Plt Count Lymph % (Auto) [place] % (Auto) Eos % (Auto) Baso % (Auto) Lymph # (Auto) [place] # (Auto) Eos # (Auto) Baso # (Auto) Seg Neutrophils % Seg Neutrophils # Sodium Potassium Chloride Carbon Dioxide Anion Gap BUN Creatinine Estimated GFR BUN/Creatinine Ratio Glucose Lactic Acid Calcium Magnesium Total Bilirubin AST ALT Alkaline Phosphatase Total Protein Albumin Albumin/Globulin Ratio HCG, Qual Negative Urine Color Yellow Urine Turbidity Slightly-cloudy Urine pH 5.0 Ur Specific [place] 1.018 Urine Protein <15 mg/dl Urine Glucose (UA) Neg Urine Ketones Neg Urine Blood Sm Urine Nitrite Neg Urine Bilirubin Neg Urine Urobilinogen < 2.0 Ur Leukocyte Esterase Neg Urine WBC (Auto) 1.0 Urine RBC (Auto) 2.0 U Epithel Cells (Auto) 5.0 Urine Mucus Few - Radiology Data Radiology results: report reviewed (Chest x-ray, lateral soft tissue neck x- ray), image reviewed (Chest x-ray, lateral soft tissue neck x-ray) interpreted by me: Chest x-ray-no focal infiltrates, no pneumothorax. No foreign body seen Lateral soft tissue neck x-ray-no prevertebral swelling, no evidence of e piglottitis. Patent airway [facility] [address] [place] [address] XRay Report Signed Patient: MARIAN POPE MR#: [id number] 4 : 1985 Acct:[id number] Age/Sex: 34 / F ADM Date: 11/08/20 Loc: ED Attending Dr: Ordering Physician: CARIN WERNER Date of Service: 11/08/20 Procedure(s): XR chest routine 2V Accession Number(s): [id number] cc: CARIN WERNER Fluoro Time In Minutes: CHEST 2 VIEWS INDICATION / CLINICAL INF ORMATION: fever/tachycardia. COMPARISON: None available. FINDINGS: SUPPORT DEVICES: None. HEART / MEDIASTINUM: No significant abnormality. LUNGS / PLEURA: No significant pulmonary or pleural abnormality. No pneumothorax. ADDITIONAL FINDINGS: No significant additional findings. IMPRESSION: 1. No acute findings. Signer Name: Eric Collado MD Signed: 11/08/2020 6:15 PM Workstation Name: [id number] Transcribed By: Dictated By: ANASTACIO COLLADO MD Electronically Authenticated By: ANASTACIO COLLADO MD Signed Date/Time: 11/08/201814 DD/ 14 TD/TT: [facility] [address] [place] [address] XRay Report Signed Patient: MARIAN POPE MR#: [id number] 4 : 1985 Acct:[id number] Age/Sex: 34 / F ADM Date: 11/08/20 Loc: ED Attending Dr: Ordering Physician: LOGAN BOOKER MD Date of Service: 11/08/20 Procedure(s): XR neck soft tissue Accession Number(s): [id number] cc: LOGAN BOOKER MD Fluoro Time In Minutes: NECK SOFT TISSUE 2 VIEW(S) INDICATION / CLINICAL INFORMATION: Sore throat, fever COMPARISON: None available. FINDINGS: EPIGLOTTIS: No significant abnormality. RETROPHARYNGEAL SOFT TISSUES: No significant abnormality. AIRWAY: No significant abnormality. RADIOPAQUE FOREIGN BODY: None. SKELETAL SYSTEM: No acute abnormality ADDITIONAL FINDINGS: None. IMPRESSION: 1. No significant abnormality. Signer Name: Edson Colunga MD Signed: 11/08/2020 10:34 PM Workstation Name: [id number] Transcribed By: Dictated By: Edson Colunga MD Electronically Authenticated By: Edson Colunga MD Signed Date/Time: 11/08/202233 DD/ 32 TD/TT: Print Cancel - Differential Diagnosis Pharyngitis, retropharyngeal abscess, bronchitis, pneumonia, sepsis Critical care attestation.: If time is entered above; I have spent that time in minutes in the direct care of this critically ill patient, excluding procedure time. ED Disposition Clinical Impression: Acute pharyngitis Disposition: DC-01 TO HOME OR SELFCARE Is pt being admited?: No Does the pt Need Aspirin: No Condition: Stable Instructions: Pharyngitis, [id number] Additional Instructions: Return to the emergency department should you develop worsening symptoms, inability to tolerate food or liquids, high fever or any other concerns Prescriptions: Amoxicillin/Potassium Clav [Augmentin 875-125 Tablet] 1 each PO BID #20 tablet HYDROcodone/APAP 5-325 [[place] 5/325] 1 - 2 each PO Q6HR PRN #10 tablet PRN Reason: Pain Ondansetron [Zofran ODT TAB] 8 mg PO Q8HR #20 tab.rapdis Referrals: PRIMARY MD DERIC [Primary Care Provider] - 3-5 Days [facility] [Provider Group] - 3-5 Days TERRY PRADO MD [Staff Physician] - 3-5 Days Time of Disposition: 00:44
--- NOTE | 2020-11-08 22:39 | XRay Report ---
NECK SOFT TISSUE 2 VIEW(S) INDICATION / CLINICAL INFORMATION: Sore throat, fever COMPARISON: None available. FINDINGS: EPIGLOTTIS: No significant abnormality. RETROPHARYNGEAL SOFT TISSUES: No significant abnormality. AIRWAY: No significant abnormality. RADIOPAQUE FOREIGN BODY: None. SKELETAL SYSTEM: No acute abnormality ADDITIONAL FINDINGS: None. IMPRESSION: 1. No significant abnormality. Signer Name: Edson Colunga MD Signed: 11/08/2020 10:34 PM Workstation Name: [id number]
[2020-11-09 01:32] VITALS: BP 110/79
--- NOTE | 2020-11-09 11:31 | Electrocardiograph Report ---
[facility] Test Date: 2020-11-08 Test Time: 19:53:24 Pat Name: MARIAN POPE Department: Room: Gender: F Manager Wound: MANUELA : 1985 Requested By: LOGAN BOOKER Order Number: [id number] Reading MD: Obi Roberts Measurements Intervals [place] Rate: 77 P: 64 SD: 122 QRS: 78 QRSD: 85 T: 65 QT: 373 QTc: 422 Interpretive Statements Sinus rhythm No previous ECG available for comparison Electronically Signed On 11-09-2020 11:31:01 EDT by Obi Roberts
== END 2020-11-09 01:33 | disposition home or self-care (01) ==
LOC: ED 15:50
DX: J02.9 Acute pharyngitis, unspecified (principal); R50.9 Fever, unspecified; R05 Cough; F17.200 Nicotine dependence, unspecified, uncomplicated; Z98.890 Other specified postprocedural states; Z79.2 Long term (current) use of antibiotics; Z79.899 Other long term (current) drug therapy
CPT/HCPCS: 36415; 70360; 71046; 80053; 81001; 82140; 83735; 84703; 85025; 87040; 87086; 93005; 96365; 96375; 99284; J0696; J2405; J3010; J7030